=== PATIENT | female | born 2005 | race Caucasian/White ===

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

== ENCOUNTER 2023-06-25 20:41 | Emergency (ER) | payer OTHER, SELFPAY ==
--- NOTE | 2023-06-25 20:44 | XRR_ITS ---
PROCEDURE INFORMATION: Exam: XR Right Ankle Exam date and time: 06/25/2023 8:53 PM Age: 17 years old Clinical indication: Pain; Ankle; Right; Additional info: Injury TECHNIQUE: Imaging protocol: Radiologic exam of the right ankle. Views: 3 or more views. COMPARISON: No relevant prior studies available. FINDINGS: Bones/joints: No acute fracture. No dislocation. Normal bone mineralization. No joint effusion. Joint spaces are maintained. Ankle mortise is symmetric. Soft tissues: Mild soft tissue swelling over the lateral malleolus. No radiopaque foreign body. XR/XR ankle RT min 3V* [id number] IMPRESSION: 1. No acute fracture of the right ankle. Followup imaging recommended in 7-14 days if clinical concern for fracture persists. 2. Mild soft tissue swelling over the lateral malleolus.
[2023-06-25 20:47] VITALS: PULSE 99; RESP 17; TEMP 36.8; O2SAT 95; BMI 31.8
--- NOTE | 2023-06-25 20:47 | ED_ITS ---
HPI - Extremity Injury (Lower) General: Chief Complaint: Extremity Injury, Lower Stated Complaint: right ankle injury Time Seen by Provider: 06/25/23 20:43 Source: patient Mode of arrival: ambulatory Limitations: no limitations History of Present Illness: 17-year-old female states she was walking tonight roughly 15 minutes ago and states that she had rolled her right ankle she felt a pop in the lateral portion of ankle and had pain in that ankle since then. She has had swelling states it is tender to touch. She denies any foot pain denies any knee pain denies any other injuries rates her pain a 6 out of 10 currently Review of Systems Const: Denies: fever(s), chills, body aches or change in appetite ENMT: Denies: throat pain or dental pain Card: Denies: chest pain Resp: Denies: dyspnea GI: Denies: abdominal pain, nausea, vomiting or diarrhea Musc: Reports: extremity pain; Denies: neck pain or back pain Skin/Breast: Denies: rash Neuro: Denies: headache(s) PFSH ED PFSH: Family History Father Healthy adult male Mother Healthy female adult Social History Smoking and tobacco/nicotine status: never used tobacco/nicotine Second hand smoke exposure: No Alcohol intake: never Substance/Drug Use: never Adopted: No Caregiver/support person: No Lives independently: Yes Housing: House Marital status: Single Highest education level completed: Some College, No Degree service: No Current occupational status: employed 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 [employer] Current occupational exposures/hazards: No Pets and animals: No Sexually active: Yes Do you think of yourself as: Straight/Heterosexual Current gender identity: Female Female Reproductive History: Spontaneous abortions: No Physical Exam Const: COMMON NORMALS: no acute distress and patient oriented x3 HENMT: COMMON NORMALS: normocephalic HEAD & SCALP: normocephalic Eye: COMMON NORMALS: conjunctivae normal CONJUNCTIVA: Yes conjunctivae normal Neck/C-Spine: COMMON NORMALS: supple Chest: COMMONS NORMALS: normal inspection of the chest Resp: COMMON NORMALS: normal respiratory effort GI: INSPECTION: Yes normal to inspection Extremity: NARRATIVE EXTREMITY EXAM: Swelling over right lateral ankle with tenderness no obvious deformity distal pulses sensation intact Neuro: COMMON NORMALS: patient oriented x3 Psych: COMMON NORMALS: mental status grossly normal Skin: COMMON NORMALS: no rashes or lesions noted GENERAL SKIN EXAM: no rashes or lesions noted Course Vital Signs: Vital signs: Vital Signs Temperature 98.3 F 06/25/23 20:47 Pulse Rate 99 06/25/23 20:47 Respiratory Rate 17 06/25/23 20:47 Pulse Oximetry 95 06/25/23 20:47 Oxygen Delivery Me thod Room Air 06/25/23 20:47 MDM - Extremity Injury (Lower) Medical Decision Making Patient presents here with an ankle sprain x-ray shows no fracture we will Harjit wrap we will discharge with crutches she is to weight-bear as tolerated we will get her follow-up with podiatry she is to return if worsening she understands ag kassidy to plan. Medical Records I reviewed the patient's medical records. Lab Data I reviewed the patient's lab results. XR interpretation done by ED provider, pending radiology final review ED provider radiology interpretation(s): xr r ankle: no acute fx Discharge Plan Discharge Patient Disposition: Home Clinical Impression: Ankle sprain and strain Condition: Stable Prescriptions: New Naprosyn 500 mg tablet 500 mg PO BID PRN (Reason: pain) Qty: 20 0RF No Action escitalopram oxalate [Lexapro] 10 mg tablet 10 mg PO DAILY Qty: 90 2RF gabapentin 100 mg capsule 100 mg PO DAILY Qty: 30 2RF Discharge Orders: Discharge ED (Routine); Ordered 06/25/23 Ordered By: Francisca Mathew Referrals: Jarek Mitchell DO [Primary Care Provider] - Geoff Canas DPM [Physician] - 1-3 days Discharge Diet: Advance as tolerated Discharge Activity: Resume usual activity Patient Instructions: Ankle Sprain (ED) Coding Level of Care Code ED Plumbing Service Technician for Shelby Salazar
[2023-06-25] MEDS: HYDROcodone-acetaminophen 5-325 mg Tablet 1 TAB PO (21:01)
[2023-06-25 22:05] VITALS: BP 127/82; PULSE 113; RESP 18; O2SAT 97
--- NOTE | 2023-06-26 07:19 | DCPLANNER ---
Message sent to Podiatry for follow up on Ankle Sprain.
== END 2023-06-25 22:08 | disposition home or self-care (01) ==
PROVIDERS: Emergency Provider Emergency Medicine; PCP Family Medicine
DX: S93.401A Sprain of unspecified ligament of right ankle, initial encounter (principal); S96.911A Strain of unspecified muscle and tendon at ankle and foot level, right foot, initial encounter; X50.1XXA Overexertion from prolonged static or awkward postures, initial encounter
CPT/HCPCS: 73610; 99283; E0114

== ENCOUNTER 2023-11-11 18:10 | Emergency (ER) | payer SELFPAY ==
[2023-11-11 18:25] VITALS: BP 162/98; PULSE 131; RESP 18; TEMP 36.8; O2SAT 98; BMI 40.2
--- NOTE | 2023-11-11 18:29 | W.ED.WOUNDLC ---
HPI - Wound/Laceration General: Chief Complaint: Wound/Laceration Stated Complaint: fell into glass table Laceration Time Seen by Provider: 11/11/23 18:29 History of Present Illness: 18-year-old female presents emergency department stating that she has a cut to her left forearm. She states she had an accidental trip and fall and cut on glass at home. She rates her current pain is 6 out of 10 throbbing and aching. Bleeding is controlled at present. She denies loss of consciousness numbness or tingling to the extremity. Review of Systems General: Reports: 10 or more systems reviewed and unremarkable except in HPI and below Skin/Breast: Reports: other (Laceration left forearm) PFSH ED PFSH: Family History Father Healthy adult male Mother Healthy female adult Social History Smoking and tobacco/nicotine status: never used tobacco/nicotine Second hand smoke exposure: No Alcohol intake: never Substance/Drug Use: never Adopted: No Caregiver/support person: No Lives independently: Yes Housing: House Marital status: Single Highest education level completed: Some College, No Degree service: No Current occupational status: employed Current occupation: [employer] Current occupational exposures/hazards: No Pets and animals: No Sexually active: Yes Do you think of yourself as: Straight/Heterosexual Current gender identity: Female Female Reproductive History: Spontaneous abortions: No Physical Exam Narrative: EXAM NARRATIVE: Constitutional: the patient appears well nourished and of normal development. Vital signs as documented. No acute distress at present. Alert and oriented-to person, place, time and situation. Head, eyes, ears, nose, mouth, throat: Normocephalic, atraumatic. Pupils-equal, round, reactive to light. No scleral icterus. Normal-appearing external ears. Normal appearing nasal turbinates, no drainage. No obvious oral lesions, posterior oropharynx without erythema or exudates. Neck: Supple, trachea is midline, no lymphadenopathy, no jugular venous distension, thyromegaly, or carotid bruits. Carotid upstrokes are brisk bilaterally. Lungs: clear to auscultation to all lung iraheta. Symmetrical rise and fall of chest, no obvious signs of increased work of breathing at present. Cardiac: Regular rate and rhythm, positive S1, S2. No murmurs, rubs or gallops that I can appreciate Abdomen: Soft, non-tender to palpation, normal active bowel sounds to all quadrants. No palpable masses, no organomegaly and abdominal bruits. Extremities: 2+ pulses in the upper extremities that are equal bilaterally, 2+ pulses in the lower extremities that are equal bilaterally. Non-edematous. Moves all extremities well, sensation to all extremities are noted. Flexion and extension of the wrist and fingers are intact. Skin: Warm, dry, intact. 12 cm laceration to the ventral aspect of the left forearm elliptical in shape. Course ED course: Laceration Repair: The patient verbally consents to a wound repair. A time out was performed. Side and sight are verified. Patient identification is verified. Left forearm ventral aspect The wound is anesthetized with- 5ml of 1% Lidocaine without epinephrine It is then copiously irrigated with sterile saline and cleansed with saline and betadine mixture. The wound measures [-*12* cm-] in length by [-*0.25 mm-] in depth. It is approximated using simple interrupted sutures with [-5-0-] Ethilon. Total number [-*14*-]. Good approximation is achieved. Hemostasis is maintained. It is dressed with antibiotic ointment and a bulky dressing. Follow-up instructions were provided to the patient. The patient was educated on the signs of infection and return precautions. The patient was advised to follow-up with a medical provider in 10-14 days to have the wound evaluated for possible suture removal. Vital Signs: Vital signs: Vital Signs Temperature 98.2 F 11/11/23 18:25 Pulse Rate 131 H 11/11/23 18:25 Respiratory Rate 18 11/11/23 18:25 Blood Pressure 162/98 11/11/23 18:25 Pulse Oximetry 98 11/11/23 18:25 Oxygen Delivery Me thod Room Air 11/11/23 18:25 MDM - Wound/Laceration Medical Decision Making Physical exam completed and documented laceration repair as noted. Advise follow-up in the next 10 to 14 days for wound evaluation and possible suture removal. Medical Records I reviewed the patient's medical records. No radiology studies performed this visit Discharge Plan Discharge Patient Disposition: Home Clinical Impression: Laceration of left forearm Condition: Stable Prescriptions: No Action gabapentin 100 mg capsule 100 mg PO DAILY Qty: 30 2RF bupropion HCl 150 mg tablet extended release 24 hr 150 mg PO QAM Qty: 30 5RF Naprosyn 500 mg tablet 500 mg PO BID PRN (Reason: pain) Qty: 20 0RF Discharge Orders: Discharge ED (Routine); Ordered 11/11/23 Ordered By: Parviz Cali Referrals: Jarek Mitchell, [Primary Care Provider] - Discharge Diet: Usual diet Discharge Activity: Resume usual activity Patient Instructions: Opioid Safety, Pain Management Activity Restrictions/Additional Instructions: Activity Restrictions/Additional Instructions: Thank you for choosing [facility] for your healthcare needs today. Please realize that you were seen in the Emergency Department and that we are providing you with an emergency medical screening exam and this may not be a complete and all inclusive of all the testing and or medical work-up that you may need to determine your ailment or severity of your illness. It is very important that you follow-up as instructed with your Primary care provider or Specialist for additional evaluation and to discuss your medical treatment plan. Follow-up in the next 10 to 14 days with your primary care or urgent care or you may return here for evaluation and suture removal. Coding Level of Care Code ED Pediatric Rn for Shelby Salazar
[2023-11-11] MEDS: lidocaine 1% INJ 10 mL (per mL) 20 ML INJECTION (18:43)
== END 2023-11-11 19:34 | disposition home or self-care (01) ==
PROVIDERS: Emergency Provider Internal Medicine; PCP Family Medicine
DX: S51.812A Laceration without foreign body of left forearm, initial encounter (principal); W01.110A Fall on same level from slipping, tripping and stumbling with subsequent striking against sharp glass, initial encounter
CPT/HCPCS: 12004; 99283

== ENCOUNTER 2024-03-24 14:24 | Outpatient (RCR) | payer MEDICAID, SELFPAY | END 2024-04-19 23:59 | disposition home or self-care (01) | LOC: SPT 14:24 | PROVIDERS: PCP Family Medicine; Visit Provider Family Medicine | DX: M54.50 Low back pain, unspecified (principal) | CPT/HCPCS: 97110; 97161 ==

== ENCOUNTER 2024-04-20 06:30 | Outpatient (RCR) | payer MEDICAID, SELFPAY | END 2024-05-01 23:59 | disposition home or self-care (01) | LOC: SPT 06:30 | PROVIDERS: PCP Family Medicine; Visit Provider Family Medicine | DX: M54.50 Low back pain, unspecified (principal) | CPT/HCPCS: 97110 ==

== ENCOUNTER → 2024-04-28 15:47 | Outpatient (BNVA) | payer MEDICAID, SELFPAY | PROVIDERS: PCP Family Medicine; Visit Provider Nurse Practitioner | DX: R39.9 Unspecified symptoms and signs involving the genitourinary system (principal) | CPT/HCPCS: 81000 ==